=== PATIENT | male | born 1940 | race Caucasian/White ===

== ENCOUNTER 2016-09-17 04:37 | Emergency (ER) | payer MEDICARE ==
[2016-09-17 05:01] VITALS: RESP 18
--- NOTE | 2016-09-17 05:21 | C.PDOC ---
History Of Present Illness as per daughter, pt woke up "shaking" , and felt dizzy. No cp, palpitations, no f/c/n/v. Pt is aaox3 No tongue bitting or post ictal . Pt has not seen a doctor in a while Time Seen by Provider: 09/17/16 05:21 Chief Complaint (Nursing): Medical Clearance History Per: Patient, Family History/Exam Limitations: no limitations Onset/Duration Of Symptoms: Hrs Current Symptoms Are (Timing): Gone Severity: None Past Medical History Reviewed: Historical Data, Nursing Documentation, Vital Signs Vital Signs: Last Vital Signs Temp 97.4 F L 09/17/16 04:51 Pulse 60 09/17/16 06:06 Resp 18 09/17/16 06:06 BP 151/72 H 09/17/16 06:06 Pulse Ox 100 09/17/16 06:41 - Medical History PMH: HTN Family History: States: No Known Family Hx - Social History Hx Alcohol Use: Yes Hx Substance Use: No - Immunization History Hx Influenza Vaccination: No Hx Pneumococcal Vaccination: No Review Of Systems Constitutional: Negative for: Fever, Chills ENT: Negative for: Throat Pain Cardiovascular: Negative for: Chest Pain, Palpitations Respiratory: Negative for: Shortness of Breath Gastrointestinal: Negative for: Nausea, Vomiting, Abdominal Pain Genitourinary: Negative for: Dysuria Musculoskeletal: Negative for: Back Pain Skin: Negative for: Rash, Lesions, Jaundice, Bruising Neurological: Positive for: Dizziness, Other ("shaking"). Negative for: Numbness, Incoordination Psych: Negative for: Anxiety Physical Exam - Physical Exam Appears: Non-toxic, No Acute Distress Skin: Warm, Dry Head: Atraumatic Eye(s): bilateral: Normal Inspection Neck: Supple Chest: Symmetrical Cardiovascular: Rhythm Regular Respiratory: No Rales, No Rhonchi, No Wheezing Gastrointestinal/Abdominal: Soft, No Tenderness, No Distention Extremity: Normal ROM, No Tenderness, No Pedal Edema, Other (b/l cogwheel rigidity wrists) Extremity: Bilateral: Atraumatic, Normal Color And Temperature Neurological/Psych: Oriented x3, Normal Speech, Normal Cognition Gait: Steady ED Course And Treatment - Laboratory Results Result Diagrams: 09/17/16 05:34 09/17/16 05:34 ECG: Interpreted By Me, Viewed By Me ECG Rhythm: Sinus Rhythm (64), 1st Degree HB, Nonspecific Changes O2 Sat by Pulse Oximetry: 100 Pulse Ox Interpretation: Normal - Radiology CXR: Interpreted by Me, Viewed By Me - CT Scan/US Head CT Other Rad Studies (CT/US): Read By Radiologist, Radiology Report Reviewed CT/US Interpretation: EXAM: CT Head Without Intravenous Contrast. CLINICAL HISTORY: 76 years old, male; Pain; Other: R/O bleed. TECHNIQUE: Axial computed tomography images of the head/brain without intravenous contrast. This CT exam. was performed using one or more of the following dose reduction techniques: automated exposure. control, adjustment of the mA and/or kV according to patient size, and/or use of iterative. reconstruction technique. EXAM DATE/TIME: Exam ordered 09/17/2016 5:26 AM. COMPARISON: No relevant prior studies available. FINDINGS: Brain: There is no intracranial hemorrhage. There is asymmetric volume loss in the right frontal. region, with underlying white matter change, in keeping with previous stroke. Extensive. periventricular hypoattenuation in keeping with likely chronic small vessel changes. No edema. Ventricles: Unremarkable. No ventriculomegaly. Bones/joints : Unremarkable. No acute fracture. Soft tissues: There is frontal soft tissue swelling. Vasculature: There is extensive atherosclerosis. Sinuses: Extensive disease of the frontal and bilateral ethmoid sinuses, noting bubbly secretions in. the frontal sinuses acute sinusitis is suggested. Mastoid air cells: There is poor pneumatization and fluid present in the right mastoids. IMPRESSION: No acute intracranial hemorrhage. Extensive chronic changes. Suspicion for acute sinusitis as above. No abnormality suspicious for acute stroke by noncontrast head CT. If there is clinical suspicion for. stroke, please note that other modalities are considered to be more sensitive than noncontrast head. CT. Comparison to previous is recommended on site, there are no previous available at this time Progress Note: blood work, ct head, ekg Reevaluation Time: 06:44 Reassessment Condition: Improved Medical Decision Making Medical Decision Making: Upon provider reevaluation patient is feeling better, is medically stable, and requires no further treatment in the ED at this time. Patient will be discharged home with Rx for augmentin . Counseling was provided and all questions were answered regarding diagnosis and need for follow up withdr lin. There is agreement to discharge plan. Return if symptoms persist or worsen. Disposition Counseled Patient/Family Regarding: Studies Performed, Diagnosis, Need For Followup, Rx Given - Disposition Referrals: Kayley Lin MD [Staff Provider] - Disposition: HOME/ ROUTINE Disposition Time: 05:21 Condition: FAIR Prescriptions: Amoxicillin/Clavulanate [Augmentin 875 MG-125 MG] 1 tab PO BID #14 tab Instructions: Sinusitis (ED) - Clinical Impression Clinical Impression: Medical assessment, Sinusitis
[2016-09-17 05:37] LABS: BASO # 0.1 K/uL (0.0-0.2); BASO % 0.8 % (0.0-2.0); EOS # 0.4 K/uL (0.0-0.7); EOS % 5.2 % (0.0-4.0); HEMATOCRIT 43.7 % (35.0-51.0); LYMPH # 2.7 K/uL (1.0-4.3); LYMPH % 35.3 % (20.0-40.0); MEAN CELL VOLUME 88.8 fL (80.0-94.0); MEAN CORPUSCULAR HEMOGLOBIN 29.6 pg (27.0-31.0); MEAN CORPUSCULAR HGB CONC 33.3 g/dL (33.0-37.0); MEAN PLATELET VOLUME 8.5 fL (7.2-11.7); MONO # 0.7 K/uL (0.0-0.8); MONO % 8.6 % (0.0-10.0); RED CELL DISTRIBUTION WIDTH 13.4 % (11.5-14.5); WHITE BLOOD COUNT 7.6 K/uL (4.8-10.8)
[2016-09-17 05:48] LABS: CHLORIDE 100 mmol/L (98-107); POTASSIUM 5.2 mmol/L (3.6-5.2); SODIUM 143 mmol/L (132-148)
[2016-09-17 05:50] LABS: ALB/GLOB RATIO 1.2 (1.0-2.1); AST/SGOT 31 U/L (17-59); BILIRUBIN,TOTAL 0.6 mg/dL (0.2-1.3); CARBON DIOXIDE 27 mmol/L (22-30); GFR AFRICAN-AMERICAN > 60; TOTAL PROTEIN 7.4 g/dL (6.3-8.3)
[2016-09-17 05:51] LABS: ALKALINE PHOSPHATASE 72 U/L (38-126); ALT/SGPT 10 U/L (21-72); BLOOD UREA NITROGEN 19 mg/dL (9-20); CALCIUM 9.1 mg/dl (8.6-10.4); GLUCOSE,RANDOM 138 mg/dL (75-110); MAGNESIUM 2.2 mg/dL (1.6-2.3)
[2016-09-17 06:06] VITALS: BP 151/72; PULSE 60
[2016-09-17 06:38] LABS: RBC URINE < 1 /hpf (0-3); URINE BILIRUBIN NEGATIVE (NEGATIVE); URINE BLOOD NEGATIVE (NEGATIVE); URINE COLOR Yellow (YELLOW); URINE GLUCOSE (UA) NORMAL (Normal); URINE KETONE NEGATIVE (NEGATIVE); URINE LEUKOCYTE ESTERASE NEG Leu/uL (Negative); URINE PROTEIN NEGATIVE (NEGATIVE); URINE UROBILINOGEN NORMAL mg/dL (0.2-1.0); WBC URINE 1 /hpf (0-5)
--- NOTE | 2016-09-17 06:38 | CT ---
EXAM: CT Head Without Intravenous Contrast CLINICAL HISTORY: 76 years old, male; Pain; Other: R/O bleed TECHNIQUE: Axial computed tomography images of the head/brain without intravenous contrast. This CT exam was performed using one or more of the following dose reduction techniques: automated exposure control, adjustment of the mA and/or kV according to patient size, and/or use of iterative reconstruction technique. EXAM DATE/TIME: Exam ordered 09/17/2016 5:26 AM COMPARISON: No relevant prior studies available. FINDINGS: Brain: There is no intracranial hemorrhage. There is asymmetric volume loss in the right frontal region, with underlying white matter change, in keeping with previous stroke. Extensive periventricular hypoattenuation in keeping with likely chronic small vessel changes. No edema. Ventricles: Unremarkable. No ventriculomegaly. Bones/joints: Unremarkable. No acute fracture. Soft tissues: There is frontal soft tissue swelling. Vasculature: There is extensive atherosclerosis. Sinuses: Extensive disease of the frontal and bilateral ethmoid sinuses, noting bubbly secretions in the frontal sinuses acute sinusitis is suggested. Mastoid air cells: There is poor pneumatization and fluid present in the right mastoids. IMPRESSION: No acute intracranial hemorrhage. Extensive chronic changes. Suspicion for acute sinusitis as above. No abnormality suspicious for acute stroke by noncontrast head CT. If there is clinical suspicion for stroke, please note that other modalities are considered to be more sensitive than noncontrast head CT. Comparison to previous is recommended on site, there are no previous available at this time
[2016-09-17 06:41] VITALS: O2SAT 100
[2016-09-17] MEDS ORDERED: Amoxicillin-Clav 875-125 mg Tab PO STA (06:48)
[2016-09-17 06:50] VITALS: TEMP 98
--- NOTE | 2016-09-17 07:37 | RAD ---
PROCEDURE: CHEST RADIOGRAPH, 1 VIEW HISTORY: SOB COMPARISON: None available. FINDINGS: LUNGS: Clear. PLEURA: No pneumothorax or pleural fluid seen. CARDIOVASCULAR: Normal. OSSEOUS STRUCTURES: No significant abnormalities. VISUALIZED UPPER ABDOMEN: Normal. OTHER FINDINGS: None. IMPRESSION: No active disease. Baseline study
--- NOTE | 2016-09-20 15:28 | CARD ---
APPROVED REPORT EKG Measurement Heart [id number] <Conclusion> Sinus rhythm with 1st degree AV block Inferior infarct, age undetermined Abnormal ECG
== END 2016-09-17 06:54 | disposition home or self-care (01) ==
LOC: C.ER 04:37
DX: J32.1 Chronic frontal sinusitis (principal)